=== PATIENT | female | born 2000 | race Caucasian/White ===

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

== ENCOUNTER 2021-01-27 13:33 | Emergency (ER) | payer OTHER, SELFPAY ==
[2021-01-27 13:35] VITALS: BP 125/76; PULSE 91; RESP 18; TEMP 36.5; O2SAT 100; BMI 23.6
--- NOTE | 2021-01-27 14:32 | CT_ITS ---
STUDY: CT ABDOMEN AND PELVIS WITH CONTRAST REASON FOR EXAM: Female, 20 years old. RLQ abdominal pain RADIATION DOSAGE (If Supplied By Facility): CTDIvol = ( 8.68 ) mGy, DLP = ( 552.10 ) mGycm TECHNIQUE: Transaxial images were obtained from the dome of the diaphragm to the symphysis pubis without oral contrast. IV 100mL Isovue-300 was administered. Sagittal and coronal images were reconstructed. Individualized dose optimization techniques were used for this CT. COMPARISON: None. FINDINGS: The visualized lung bases are unremarkable. Small pericardial effusion at the base of the heart Normal liver. Normal gallbladder and extrahepatic biliary system. Normal spleen. Normal pancreas. Normal bilateral adrenal glands. There is a 1.2 cm cyst in the upper and midportion of the right kidney. Renal cysts are also seen in the left kidney. The larger measures 1.2 cm. Normal visualized stomach. Normal small intestine. Normal colon. The appendix is visualized and appears normal. Normal abdominal aorta. Normal inferior vena cava. Normal retroperitoneum. Normal urinary bladder. There is a 10.6 x 10.7 cm cystic mass in the cul-de-sac region of the pelvis. This also evidence of a 2.4 JACLYN''s cyst in the left ovary. Correlation with ultrasound is recommended. Normal abdominal wall. Normal osseous structures. CT/Abdomen/Pelvis W IV Cont ONLY IMPRESSION: Pericardial effusion at the base of the heart. Large pelvic cystic mass as described. Correlation with ultrasound is recommended. Electronically Signed: Ruben Wade MD at 15:39 EST , Service support ,
--- NOTE | 2021-01-27 14:44 | ED.VIS.GI ---
HPI HPI - GI History of Present Illness Chief Complaint: Abd Pain Narrative Narrative: 20-year-old female presenting with right lower quadrant pain which has been present for 4 days and is worsening. She describes it is aching in the right lower quadrant. She does have associated diarrhea. Patient does also admit to thinking that she has bacterial vaginosis. She states she has a slight fishy smell. She went to urgent care today to get antibiotics for this. They did test her for STDs although she states she does not have any concern for STDs. She was sent to the ER because of the right lower quadrant pain. Patient is on Nexplanon and has little concern for . PFSH PFSH Medical History no medical history Home Medications etonogestrel [Nexplanon] 68 mg SQ DAILY 06/24/17 [History Last Taken Unknown] hydrocodone-acetaminophen 1 tab PO Q6H 3 Days #12 tablet 01/27/21 [Rx Last Taken Unknown] Allergy/AdvReac Type Severity Reaction Status Date / Time azithromycin [From Zithromax] Allergy Unknown Verified 06/24/17 19:31 grass pollen Allergy Shortness Verified 01/27/21 13:34 of breath mold Allergy Shortness Verified 01/27/21 13:34 of breath peanut Allergy Anaphylaxis Verified 01/27/21 13:34 tree nut Allergy Angioedema Verified 01/27/21 13:34 Surgical History no surgical history Social History Smoking Status: Never smoker ROS ROS ED Constitutional Constitutional ED: Denies chills or fever(s) ENT ENT ED: Denies rhinorrhea or sore throat Cardiovascular Cardiovascular: Denies chest pain or palpitations Respiratory/Chest Respiratory/Chest: Denies cough or dyspnea Gastrointestinal Gastrointestinal: Reports abdominal pain and diarrhea Genitourinary Genitourinary ED: Denies dysuria or hematuria Musculoskeletal Musculoskeletal: Denies arthralgias or myalgias Integumentary Denies rash Neurologic Neurologic: Denies headache(s) or paresthesias Psychiatric Psychiatric: Denies anxiety or depression EXAM Physical Exam Const Vital Signs: 01/27/21 13:35 Temperature 97.7 F L Temperature Source Temporal Pulse Rate 91 Respiratory Rate 18 Blood Pressure 125/76 H Blood Pressure Mean 92 Pulse Ox 100 Oxygen Delivery Method Room Air Positive well nourished General Appearance ED: NAD; Negative for pallor HEENT Reports moist mucous membranes normocephalic and atraumatic Eyes PERRL and EOMs intact bilaterally Resp normal respiratory effort and clear to auscultation bilaterally Cardio regular rate and regular rhythm GI Palpation: tender RLQ Back/Spine no CVA tenderness Extremity full ROM Neuro CN's II-XII intact bilaterally Sensorium / Orientation: alert and oriented to person Psych mental status grossly normal and thought process normal Skin General Skin Exam: Negative for jaundice or pallor MDM MDM MDM Narrative Medical decision making narrative: Patient presenting with right lower quadrant pain. I obtain blood work which is normal. Urinalysis negative for infection. Patient does not have concern for and has Nexplanon. She is also having symptoms of what she believes is bacterial vaginosis has been swabbed at the dental [facility]side assistant office. Patient describes her discharge is minimal and fishy smelling. Urinalysis here is negative for infection. CT of the abdomen pelvis is ordered and does not show any appendicitis. It does identify a large pelvic cystic mass on the right and a smaller one on the left. Ultrasound was used in follow-up for this that shows a large right ovarian cystic lesion with internal debris is a multiseptated left ovarian cystic lesion. Patient's pain is controlled currently with morphine and Zofran. She is offered pain medication for home and states that she will take a prescription but she does not start want take pain medication. Patient is counseled to follow-up with gynecology. She is given return precautions. A prescription for [place] was sent to her pharmacy. Impression: 1. Bilateral ovarian cyst 2. Pericardial effusion 3. Vaginal discharge Lab Data Labs: Laboratory Results - last 24 hr 01/27/21 01/27/21 14:36 15:15 Sodium 141 Potassium 3.7 Chloride 110 H Carbon Dioxide 26.0 Anion Gap 5 BUN 11 Creatinine 0.85 Estim Creat Clear Calc 118.00 Est GFR (MDRD) Af Amer 109 Est GFR (MDRD) Non-Af 90 BUN/Creatinine Ratio 12.9 Glucose 80 Calcium 9.1 Urine Color Yellow Urine Clarity Clear Urine pH 6.5 Ur Specific [place] 1.020 Urine Protein 100 H Urine Glucose (UA) Normal Urine Ketones 5 H Urine Occult Blood Negative Urine Nitrite Negative Urine Bilirubin Negative Urine Urobilinogen Normal Ur Leukocyte Esterase Negative Urine RBC 0 SEEN Urine WBC 0-5 SEEN Ur Squamous Epith Cells 0 SEEN Urine Bacteria 0 SEEN Urine Mucus 0 SEEN Radiography Diagnostic Testing: Clinical Impression(s) from Imaging Studies Abdomen/Pelvis CT 01/27/21 14:32 IMPRESSION: Pericardial effusion at the base of the heart. Large pelvic cystic mass as described. Correlation with ultrasound is recommended. Electronically Signed: Ruben Wade MD at 15:39 EST , Service support , Pelvis Ultrasound 01/27/21 15:43 IMPRESSION: Large right ovarian cystic lesion with internal debris Multiseptated left ovarian cystic lesion. Electronically Signed: Hussain Giles DO at 16:52 EST Tel [phone], Service support , Discharge Plan Triage Chief Complaint: Abd Pain ED Provider: Andres Russ Dx/Rx/DC Orders Instructions: ED Ovarian Cyst Prescriptions: New hydrocodone-acetaminophen 5-325 mg tablet 1 tab PO Q6H 3 Days Qty: 12 RF: 0 No Action Nexplanon 68 MG implant 68 mg SQ DAILY RF: 0 Primary Care Provider: Mone Ventura Referrals: Mone Ventura MD [Primary Care Provider] - Shelly Manzano NP, [facility] [NON-STAFF] - As soon as possible Disposition Disposition: Home, Self Care
[2021-01-27 15:03] LABS: Anion Gap 5 (5-15); BUN 11 mg/dL (7-18); BUN/Creat Ratio 12.9 RATIO (10-20); Calcium,Total 9.1 mg/dL (8.5-10.1); Chloride 110 mmol/L (98-107); Creatinine, Serum 0.85 mg/dL (0.55-1.02); EST Glomerular Filtration Rate 90 mL/min (>60); Est Glom Filt Rate - Afr Amer 109 mL/min (>60); Glucose 80 mg/dL (74-106); Potassium 3.7 mmol/L (3.5-5.1); Sodium Level 141 mmol/L (136-145)
[2021-01-27 15:26] LABS: Bacteria 0 SEEN /hpf (None Seen); Mucous, Urine 0 SEEN /hpf (<or=2+); Red Blood Cells-Urine 0 SEEN /hpf (0-5); Squamous Epithelial Cells - UA 0 SEEN /hpf (5-10)
[2021-01-27 15:29] LABS: Color, Urine Yellow (Yellow); Glucose, Dipstick Normal (Normal); Ketone-Dipstick 5 mg/dl (Negative); Leukocyte Esterase-Dipstick Negative /ul (Negative); Nitrite-Dipstick Negative (Negative); Occult Blood-Urine Negative /ul (Negative); Protein-Dipstick 100 mg/dl (Negative); Urine Bilirubin Dipstick Negative (Negative); Urine Clarity Clear (Clear); Urine Urobilinogen Normal (Normal); Urine pH 6.5 (5.0 - 8.0)
--- NOTE | 2021-01-27 15:43 | US_ITS ---
STUDY: ULTRASOUND OF THE FEMALE PELVIS - COMPLETE REASON FOR EXAM: Female, 20 years old. rlq pain LMP: 01/20/2021 TECHNIQUE: Transabdominal TECHNICAL QUALITY: Adequate. COMPARISON: None. FINDINGS: The uterus is anteverted and is in a midline position. The uterus measures 8.6 x 5.7 x 3.9 cm. Normal uterine cervix. The endometrium measures 5 mm in thickness, and is hyperechoic. There is no demonstrated endometrial mass. There is no demonstrated myometrial mass. The patient does not have an I.U.D. The right ovary is visualized. The right ovary measures 12.6 x 12.1 x 9.7 cm. There is a large 10.8 x 10.6 x 7.8 cm right ovarian cystic mass with debris. There is normal arterial and normal venous vascularity. The left ovary is visualized. The left ovary measures 5.8 x 4.0 x 1.7 cm. There is a multiseptated 2.3 x 2.9 x 1.5 cm left ovarian cystic mass. There is normal arterial and normal venous vascularity. There is no fluid in the cul-de-sac. US/Pelvic (Non ) IMPRESSION: Large right ovarian cystic lesion with internal debris Multiseptated left ovarian cystic lesion. Electronically Signed: Hussain Giles DO at 16:52 EST Tel [phone], Service support ,
[2021-01-27 15:51] LABS: White Blood Cells 0-5 SEEN /hpf (0-5)
[2021-01-27 17:32] VITALS: RESP 18
[2021-01-27 17:56] LABS: Absolute Lymphocyte Count 1.38 X10^3/uL (0.83-4.51); Absolute Neutrophil Count 3.1 X10^3/uL (2.0-7.7); Basophil# 0.07 X10^3/uL; Basophil% 1.3 % (0-1); Eosinophils% 7.4 % (0-5); Hematocrit 40.1 % (37-47); Hemoglobin 13.6 g/dL (12.0-15.0); Lymphocyte # 1.38 X10^3/ul (0.83-4.51); Lymphocyte % 25.6 % (19-41); Mean Corp Hgb Conc 33.9 g/dL (32-36); Mean Corpuscular Hgb 30.7 pg (27.0-32.0); Mean Corpuscular Volume 90.5 fL (81-99); Mean Platelet Vol. 9.6 fl (6.2-12.0); Monocyte# 0.41 X10^3/uL; Monocyte% 7.6 % (0-10); NRBC Flagged by Analyzer 0 % (0-5); Neutrophil # 3.12 X10^3/uL (2.7-7.7); Neutrophil % 57.9 % (47-70); Platelet Count 293 K/mm3 (150-450); RBC Distribution Width CV 12.5 % (11.6-14.6); RBC Distribution Width SD 41.2 fl (35.1-43.9); Red Blood Count 4.43 M/mm3 (4.2-5.4); White Blood Count 5.4 K/mm3 (4.4-11.0)
== END 2021-01-27 17:36 | disposition home or self-care (01) ==
PROVIDERS: Emergency Provider Student in an Organized Health Care Education/Training Program; PCP Pediatrics
DX: N83.202 Unspecified ovarian cyst, left side (principal); N83.201 Unspecified ovarian cyst, right side; I31.3 Pericardial effusion (noninflammatory); N89.8 Other specified noninflammatory disorders of vagina
CPT/HCPCS: 74177; 76856; 80048; 81001; 85025; 96374; 96375; 99283; Q9967; A4216; J2405